=== PATIENT | male | born 1990 | race Two or more races ===

== ENCOUNTER 2019-01-15 16:16 | Emergency (ER) | payer SELFPAY ==
[~2019-01-15] VITALS: Ht 177.8 cm; Wt 96.4 kg
[2019-01-15 16:25] VITALS: BP 126/70
--- NOTE | 2019-01-15 17:02 | NUR ---
TECH SENT TO CENTRAL SUPPLY TO RETRIEVE [facility]
== END 2019-01-15 19:20 | disposition home or self-care (01) ==
LOC: ED 19:15
DX: S92.512A Displaced fracture of proximal phalanx of left lesser toe(s), initial encounter for closed fracture (principal); W22.03XA Walked into furniture, initial encounter; Y93.89 Activity, other specified; Y92.009 Unspecified place in unspecified non-institutional (private) residence as the place of occurrence of the external cause; Y99.8 Other external cause status
CPT/HCPCS: 29515; 99283